=== PATIENT | male | born 1965 | race Caucasian/White ===

== ENCOUNTER 2018-06-30 15:18 | Emergency (ER) | payer OTHER ==
[~2018-06-30] VITALS: Ht 172.7 cm; Wt 63.5 kg
[~2018-06-30 15:18] MED LIST: AMOX500 PO; CEPH500 PO; CYCL10 PO; DIPATR PO; DIPH50 PO; ERYT500 PO; FAMO20 PO; HYDACE5 PO; IBUP600 PO; IBUP800 PO; KETO10 PO; LORA1 PO; NAPR500 PO; OXYACE5T PO; PENVK500 PO; PROM25 PO; SULTRIDS PO; TRAM50 PO
[2018-06-30 15:38] LABS: Source, Urine Clean Catch
[2018-06-30 15:44] LABS: Appearance, Urine Clear (Clear); Blood, Urine 1+ (Neg); Color, Urine Yellow (P-Yellow); Glucose Qualitative, Urine Neg (Neg); Ketones, Urine 2+ (Neg); Leukocyte Esterase, Urine 1+ (Neg); Nitrite, Urine Neg (Neg); Protein, Urine 2+ (Neg); Urobilinogen, Urine 2+ (Normal)
[2018-06-30 15:46] LABS: Bilirubin, Urine 1+ (Neg)
[2018-06-30 16:02] LABS: Bacteria Not Seen /hpf; Red Blood Cells, Urine Not Seen /hpf (0-2); Squamous Epithelial Cells Rare /hpf (Few); White Blood Cells, Urine 0-2 /hpf (0-5)
[2018-06-30 16:11] LABS: BASOPHILS ABSOLUTE AUTO 0.04 K/mm3 (0.00-0.23); BASOPHILS PERCENT AUTO 0 % (0-2); EOSINOPHILS PERCENT AUTO 0 % (0-6); Hemoglobin 18.6 g/dL (13.5-17.5); IMMATURE GRAN ABSOLUTE AUTO 0.08 K/mm3 (0.00-0.10); IMMATURE GRAN PERCENT AUTO 1 % (0-1); LYMPHOCYTES ABSOLUTE AUTO 1.91 K/mm3 (0.84-5.20); LYMPHOCYTES PERCENT AUTO 13 % (21-46); MONOCYTES ABSOLUTE AUTO 0.97 K/mm3 (0.16-1.47); MONOCYTES PERCENT AUTO 7 % (4-13); Mean Corpuscular HGB 31.1 pg (26.0-34.0); Mean Corpuscular HGB Conc 32.6 g/dL (31.5-36.5); Mean Corpuscular Volume 95 fL (80-100); Mean Platelet Volume 10.3 fL (9.1-12.4); NEUTROPHILS ABSOLUTE AUTO 11.65 K/mm3 (1.96-9.15); NEUTROPHILS PERCENT AUTO 80 % (41-73); Platelet Count 320 K/mm3 (150-400); RDW Coefficient Variation 12.4 % (11.7-14.2); RDW Standard Deviation 44.1 fL (35.1-46.3); Red Blood Cell Count 5.99 M/mm3 (4.30-5.90); White Blood Cell Count 14.65 K/mm3 (4.00-11.30)
[2018-06-30 16:15] LABS: Hematocrit 57.1 % (37.0-53.0)
[2018-06-30 16:27] LABS: Alanine Aminotransfer (ALT/SGP 15 U/L (12-78); Albumin, Blood 3.6 g/dL (3.4-5.0); Albumin/Globulin Ratio 0.8 (0.8-1.8); Alk Phos 128 U/L (50-136); Anion Gap 16 mmol/L (6-16); Aspartate Aminotrans (AST/SGOT 22 U/L (12-37); Bilirubin, Total 1.1 mg/dL (0.1-1.0); Blood Urea Nitrogen 23 mg/dL (8-24); Bun/Creatinine Ratio 38.2 (12.0-20.0); CO2, Blood 14 mmol/L (21-32); Calcium, Blood 7.4 mg/dL (8.5-10.1); Chloride, Blood 101 mmol/L (98-108); Globulin, Blood 4.7 g/dL (2.2-4.0); Glomerular Filtration Rate >60 (60-); Glucose, Blood 118 mg/dL (70-99); Potassium, Blood 4.6 mmol/L (3.5-5.5); Sodium, Blood 131 mmol/L (136-145); Total Protein, Blood 8.3 g/dL (6.4-8.2)
[2018-06-30 17:35] LABS: Magnesium, Blood 2.1 mg/dL (1.6-2.4); Phosphorus, Blood 4.2 mg/dL (2.5-4.9)
[2018-06-30 19:45] LABS: Calcium, Ionized (POC) 1.03 mmol/L (1.10-1.46); Chloride (POC) 101 mmol/L (98-108); Glucose (ISTAT POC) 106 mg/dL (70-99); Potassium (POC) 4.3 mmol/L (3.5-5.5); Sodium (POC) 136 mmol/L (135-148); Total CO2 (POC) 24 mmol/L (21-32)
[2018-06-30] MEDS ORDERED: IBUP400 PO (19:49)
[2018-06-30] MEDS ORDERED: Zithromax250 MG PO (19:49)
== END 2018-06-30 20:04 | disposition home or self-care (01) ==
LOC: ER 15:18
PROVIDERS: Emergency Medicine
DX: T51.91XA Toxic effect of unspecified alcohol, accidental (unintentional), initial encounter (principal); J18.1 Lobar pneumonia, unspecified organism; R10.31 Right lower quadrant pain; R10.32 Left lower quadrant pain; F17.210 Nicotine dependence, cigarettes, uncomplicated; Z79.2 Long term (current) use of antibiotics
CPT/HCPCS: 36415; 71046; 80047; 80053; 81001; 83690; 83735; 84100; 85014; 85025; 87086; 96361; 96374; 96375; 99284-25; J0696; J1885; J7030; J7120

== ENCOUNTER → 2020-04-10 | Outpatient (CLI) | payer OTHER ==
[~2020-04-10] MED LIST changes: +IBUP400 PO; +Zithromax250 MG PO
[2020-04-10 18:24] LABS: BASOPHILS ABSOLUTE AUTO 0.04 K/mm3 (0.00-0.23); BASOPHILS PERCENT AUTO 1 % (0-2); EOSINOPHILS ABSOLUTE AUTO 0.11 K/mm3 (0.00-0.68); EOSINOPHILS PERCENT AUTO 2 % (0-6); Hematocrit 46.8 % (37.0-53.0); IMMATURE GRAN ABSOLUTE AUTO 0.01 K/mm3 (0.00-0.10); IMMATURE GRAN PERCENT AUTO 0 % (0-1); LYMPHOCYTES ABSOLUTE AUTO 2.14 K/mm3 (0.84-5.20); LYMPHOCYTES PERCENT AUTO 33 % (21-46); MONOCYTES ABSOLUTE AUTO 0.47 K/mm3 (0.16-1.47); MONOCYTES PERCENT AUTO 7 % (4-13); Mean Corpuscular HGB 30.7 pg (26.0-34.0); Mean Corpuscular HGB Conc 32.1 g/dL (31.5-36.5); Mean Corpuscular Volume 96 fL (80-100); NEUTROPHILS ABSOLUTE AUTO 3.63 K/mm3 (1.96-9.15); NEUTROPHILS PERCENT AUTO 57 % (41-73); Platelet Count 312 K/mm3 (150-400); RDW Coefficient Variation 12.5 % (11.7-14.2); RDW Standard Deviation 44.8 fL (35.1-46.3); Red Blood Cell Count 4.88 M/mm3 (4.30-5.90)
[2020-04-10 18:37] LABS: Alanine Aminotransfer (ALT/SGP 19 U/L (12-78); Albumin, Blood 3.9 g/dL (3.4-5.0); Albumin/Globulin Ratio 1.1 (0.8-1.8); Alk Phos 120 U/L (50-136); Anion Gap 6 mmol/L (6-16); Aspartate Aminotrans (AST/SGOT 26 U/L (12-37); Bilirubin, Total 0.3 mg/dL (0.1-1.0); Blood Urea Nitrogen 14 mg/dL (8-24); Bun/Creatinine Ratio 16.5 (12.0-20.0); CHOL/HDL RATIO 3.5; CO2, Blood 27 mmol/L (21-32); Calcium, Blood 9.1 mg/dL (8.5-10.1); Chloride, Blood 106 mmol/L (98-108); Cholesterol 155 mg/dL (50-200); Creatinine, Blood 0.85 mg/dL (0.60-1.20); Globulin, Blood 3.6 g/dL (2.2-4.0); Glomerular Filtration Rate >60 (60-); Glucose, Blood 98 mg/dL (70-99); HDL Cholesterol 44 mg/dL (>39); LDL/HDL RATIO 2.1; Low Density Lipoprotein Chol 93 mg/dL (0-110); Potassium, Blood 3.9 mmol/L (3.5-5.5); Sodium, Blood 139 mmol/L (136-145); Total Protein, Blood 7.5 g/dL (6.4-8.2); Triglycerides 90 mg/dL (30-160); Very Low Density Lipoprot Chol 18 mg/dL (6-32)
[2020-04-11 08:09] LABS: HIV SCREEN 4TH GENERATION WRFX Non Reactive (Non Reactive)
== END | disposition home or self-care (01) ==
LOC: LAB SHORT 17:23
PROVIDERS: Nurse Practitioner Family
DX: Z11.4 Encounter for screening for human immunodeficiency virus [HIV] (principal); Z13.220 Encounter for screening for lipoid disorders; R03.0 Elevated blood-pressure reading, without diagnosis of hypertension
CPT/HCPCS: 80053; 80061; 84443; 85025; 87389

== ENCOUNTER 2022-08-11 16:45 | Emergency (ER) | payer OTHER ==
[~2022-08-11] VITALS: Ht 172.7 cm; Wt 63.5 kg
[2022-08-11 17:25] VITALS: BP 152/91
[2022-08-11] MEDS ORDERED: Norco 5-325 Ta1 EACH PO (18:54)
== END 2022-08-11 19:00 | disposition home or self-care (01) ==
LOC: ER 16:45
DX: T21.22XA Burn of second degree of abdominal wall, initial encounter (principal); T21.24XA Burn of second degree of lower back, initial encounter; T31.0 Burns involving less than 10% of body surface; F17.210 Nicotine dependence, cigarettes, uncomplicated; X00.0XXA Exposure to flames in uncontrolled fire in building or structure, initial encounter; Y92.099 Unspecified place in other non-institutional residence as the place of occurrence of the external cause
CPT/HCPCS: 99283

== ENCOUNTER 2023-03-14 11:01 | Emergency (ER) | payer OTHER ==
[~2023-03-14] VITALS: Ht 172.7 cm; Wt 63.5 kg
[~2023-03-14 11:01] MED LIST changes: +Norco 5-325 Ta1 EACH PO
[2023-03-14 11:13] VITALS: BP 138/97
[2023-03-14] MEDS ORDERED: IBUP800 PO (12:05)
[2023-03-14] MEDS ORDERED: Robaxin750 MG PO (12:05)
== END 2023-03-14 12:14 | disposition home or self-care (01) ==
LOC: ER 11:01
DX: M54.50 Low back pain, unspecified (principal); G89.29 Other chronic pain; F17.210 Nicotine dependence, cigarettes, uncomplicated
CPT/HCPCS: 96372; 99283-25; J1885

== ENCOUNTER 2023-04-19 14:28 | Observation (INO) | payer OTHER ==
[~2023-04-19] VITALS: Ht 172.7 cm; Wt 61.2 kg
[~2023-04-19 14:28] MED LIST changes: +Robaxin750 MG PO
[2023-04-19 15:40] LABS: BASOPHILS ABSOLUTE AUTO 0.05 K/mm3 (0.00-0.23); BASOPHILS PERCENT AUTO 1 % (0-2); EOSINOPHILS ABSOLUTE AUTO 0.07 K/mm3 (0.00-0.68); EOSINOPHILS PERCENT AUTO 1 % (0-6); Hemoglobin 13.8 g/dL (13.5-17.5); IMMATURE GRAN ABSOLUTE AUTO 0.01 K/mm3 (0.00-0.10); IMMATURE GRAN PERCENT AUTO 0 % (0-1); LYMPHOCYTES ABSOLUTE AUTO 2.08 K/mm3 (0.84-5.20); LYMPHOCYTES PERCENT AUTO 37 % (21-46); MONOCYTES ABSOLUTE AUTO 0.46 K/mm3 (0.16-1.47); MONOCYTES PERCENT AUTO 8 % (4-13); Mean Corpuscular HGB 30.7 pg (26.0-34.0); Mean Corpuscular HGB Conc 33.7 g/dL (31.5-36.5); Mean Corpuscular Volume 91 fL (80-100); NEUTROPHILS ABSOLUTE AUTO 2.94 K/mm3 (1.96-9.15); NEUTROPHILS PERCENT AUTO 52 % (41-73); Platelet Count 288 K/mm3 (150-400); RDW Coefficient Variation 12.9 % (11.7-14.2); RDW Standard Deviation 43.8 fL (35.1-46.3); White Blood Cell Count 5.61 K/mm3 (4.00-11.30)
[2023-04-19 16:00] LABS: Ethanol (Alcohol), Blood, Med <3 mg/dL; Salicylate <1.7 mg/dL (2.8-20.0)
[2023-04-19 16:02] LABS: Alanine Aminotransfer (ALT/SGP 16 U/L (12-78); Albumin, Blood 3.5 g/dL (3.4-5.0); Alk Phos 102 U/L (50-136); Anion Gap 6 mmol/L (6-16); Aspartate Aminotrans (AST/SGOT 17 U/L (12-37); Bilirubin, Total 0.1 mg/dL (0.1-1.0); Blood Urea Nitrogen 16 mg/dL (8-24); Bun/Creatinine Ratio 19.8 (12.0-20.0); CO2, Blood 28 mmol/L (21-32); Calcium, Blood 8.9 mg/dL (8.5-10.1); Chloride, Blood 110 mmol/L (98-108); Creatinine, Blood 0.81 mg/dL (0.60-1.20); Globulin, Blood 3.6 g/dL (2.2-4.0); Glomerular Filtration Rate 102 (60-); Glucose, Blood 116 mg/dL (70-99); Potassium, Blood 3.6 mmol/L (3.5-5.5); Sodium, Blood 144 mmol/L (136-145); Total Protein, Blood 7.1 g/dL (6.4-8.2)
[2023-04-19 16:05] LABS: Acetaminophen, Random <2.0 ug/mL (10.0-30.0)
[2023-04-19 16:16] LABS: Source, Urine Clean Catch
[2023-04-19 16:26] LABS: Bilirubin, Urine Neg (Neg); Blood, Urine Neg (Neg); Glucose Qualitative, Urine Neg (Neg); Ketones, Urine Neg (Neg); Leukocyte Esterase, Urine Neg (Neg); Nitrite, Urine Neg (Neg); Protein, Urine Neg (Neg); Urobilinogen, Urine NORM (Normal)
[2023-04-19 16:29] LABS: Appearance, Urine Clear (Clear); Color, Urine Yellow (P-Yellow)
[2023-04-19 16:41] LABS: U Amphetamine Screen Not Detected; U Barbituate Screen Not Detected; U Benzodiazapine Screen Not Detected; U Buprenorphine Screen Not Detected; U Cannabinoids Screen Not Detected; U Cocaine Screen Not Detected; U Methadone Screen Not Detected; U Methamphetamine Screen Not Detected; U Opiates Screen Not Detected; U Oxycodone Screen Not Detected; U Phencyclidine Screen Not Detected
[2023-04-20 09:58] VITALS: BP 146/83
== END 2023-04-20 11:27 | disposition home or self-care (01) ==
LOC: ER 14:28 → EOR 14:29
PROVIDERS: Physician Assistant; ADMIT Emergency Medicine
DX: F43.21 Adjustment disorder with depressed mood (principal); F10.20 Alcohol dependence, uncomplicated; F17.210 Nicotine dependence, cigarettes, uncomplicated; Y90.9 Presence of alcohol in blood, level not specified
CPT/HCPCS: 80053; 81003; 85025; 99285-25; G0378; G0480

== ENCOUNTER 2023-09-22 08:40 | Emergency (ER) | payer OTHER ==
[~2023-09-22] VITALS: Ht 172.7 cm; Wt 63.5 kg
[2023-09-22 09:20] VITALS: BP 150/94
[2023-09-22] MEDS ORDERED: SULTRIDS PO (09:22)
[2023-09-22] MEDS ORDERED: Benadryl Itch28.3 G1 TOP (09:22)
== END 2023-09-22 09:22 | disposition home or self-care (01) ==
LOC: ER 08:40
DX: S50.861A Insect bite (nonvenomous) of right forearm, initial encounter (principal); L08.9 Local infection of the skin and subcutaneous tissue, unspecified; W57.XXXA Bitten or stung by nonvenomous insect and other nonvenomous arthropods, initial encounter; Z79.899 Other long term (current) drug therapy; F17.210 Nicotine dependence, cigarettes, uncomplicated
CPT/HCPCS: 99281

== ENCOUNTER 2024-01-30 09:41 | Emergency (ER) | payer OTHER ==
[~2024-01-30] VITALS: Ht 172.7 cm; Wt 59.0 kg
[~2024-01-30 09:41] MED LIST changes: +Benadryl Itch28.3 G1 TOP
[2024-01-30 10:24] LABS: BASOPHILS ABSOLUTE AUTO 0.03 K/mm3 (0.00-0.23); BASOPHILS PERCENT AUTO 1 % (0-2); EOSINOPHILS ABSOLUTE AUTO 0.11 K/mm3 (0.00-0.68); EOSINOPHILS PERCENT AUTO 2 % (0-6); Hematocrit 42.8 % (37.0-53.0); Hemoglobin 14.9 g/dL (13.5-17.5); IMMATURE GRAN ABSOLUTE AUTO 0.01 K/mm3 (0.00-0.10); IMMATURE GRAN PERCENT AUTO 0 % (0-1); LYMPHOCYTES PERCENT AUTO 37 % (21-46); MONOCYTES ABSOLUTE AUTO 0.53 K/mm3 (0.16-1.47); MONOCYTES PERCENT AUTO 9 % (4-13); Mean Corpuscular HGB 31.4 pg (26.0-34.0); Mean Corpuscular HGB Conc 34.8 g/dL (31.5-36.5); Mean Corpuscular Volume 90 fL (80-100); Mean Platelet Volume 9.7 fL (9.1-12.4); NEUTROPHILS ABSOLUTE AUTO 3.09 K/mm3 (1.96-9.15); NEUTROPHILS PERCENT AUTO 52 % (41-73); Platelet Count 411 K/mm3 (150-400); RDW Coefficient Variation 12.8 % (11.7-14.2); RDW Standard Deviation 42.2 fL (35.1-46.3); Red Blood Cell Count 4.74 M/mm3 (4.30-5.90); White Blood Cell Count 5.97 K/mm3 (4.00-11.30)
[2024-01-30 10:53] LABS: Albumin/Globulin Ratio 1.1 (0.8-1.8); Bilirubin, Total 0.7 mg/dL (0.1-1.0); Bun/Creatinine Ratio 15.3 (12.0-20.0); Creatinine, Blood 0.98 mg/dL (0.60-1.20); Globulin, Blood 3.7 g/dL (2.2-4.0); Potassium, Blood 3.9 mmol/L (3.5-5.5); Total Protein, Blood 7.7 g/dL (6.4-8.2)
[2024-01-30] MEDS ORDERED: Labetalol HCL 5 MG/ML 4ML Injection (Single Dose) IV ONE (11:45)
[2024-01-30] MEDS ORDERED: HYDROmorphone HCl/Pf 1MG SYR IV ONE (11:45)
[2024-01-30 12:14] LABS: International Normalized Ratio 0.96; Prothrombin Time Results 10.3 Sec (9.7-11.5)
[2024-01-30] MEDS ORDERED: Atropine/Scopalam/Hyoscam/PB 5 ML UDC PO ONE (13:15)
[2024-01-30] MEDS ORDERED: Lidocaine 2% Viscous Soln 15 ML UDC PO ONE (13:15)
[2024-01-30] MEDS ORDERED: Mag Hydrox/AL Hydrox/Simeth 30 ML UDC PO ONE (13:15)
[2024-01-30 14:56] LABS: Source, Urine Clean Catch
[2024-01-30 14:58] LABS: Appearance, Urine Clear (Clear); Bilirubin, Urine Neg (Neg); Blood, Urine Neg (Neg); Color, Urine Yellow (P-Yellow); Glucose Qualitative, Urine Neg (Neg); Ketones, Urine Neg (Neg); Leukocyte Esterase, Urine Neg (Neg); Nitrite, Urine Neg (Neg); Protein, Urine 1+ (Neg); Urobilinogen, Urine NORM (Normal)
[2024-01-30 15:15] VITALS: BP 138/91
[2024-01-30] MEDS ORDERED: NITR.4SL SL (15:21)
[2024-01-30] MEDS ORDERED: NARCAN4 M1 (15:21)
== END 2024-01-30 15:30 | disposition home or self-care (01) ==
LOC: ER 09:41
PROVIDERS: Family Medicine; Physician Assistant
DX: I20.1 Angina pectoris with documented spasm (principal); F17.210 Nicotine dependence, cigarettes, uncomplicated; Z79.899 Other long term (current) drug therapy
CPT/HCPCS: 71046; 71275; 74174; 80053; 83605; 83690; 84484; 85025; 85610; 86850; 86900; 86901; 93005; 93010; 96374-59; 96375-59; 99285-25; A9270; J1171; Q9967

== ENCOUNTER 2024-02-22 11:26 | Emergency (ER) | payer OTHER ==
[~2024-02-22] VITALS: Ht 172.7 cm; Wt 63.5 kg
[~2024-02-22 11:26] MED LIST changes: +NARCAN4 M1; +NITR.4SL SL
[2024-02-22 11:30] VITALS: BP 139/91
[2024-02-22 12:06] LABS: BASOPHILS ABSOLUTE AUTO 0.04 K/mm3 (0.00-0.23); BASOPHILS PERCENT AUTO 1 % (0-2); EOSINOPHILS ABSOLUTE AUTO 0.23 K/mm3 (0.00-0.68); EOSINOPHILS PERCENT AUTO 4 % (0-6); Hematocrit 42.3 % (37.0-53.0); Hemoglobin 14.4 g/dL (13.5-17.5); IMMATURE GRAN ABSOLUTE AUTO 0.01 K/mm3 (0.00-0.10); IMMATURE GRAN PERCENT AUTO 0 % (0-1); LYMPHOCYTES ABSOLUTE AUTO 2.31 K/mm3 (0.84-5.20); LYMPHOCYTES PERCENT AUTO 38 % (21-46); MONOCYTES PERCENT AUTO 8 % (4-13); Mean Corpuscular HGB 31.5 pg (26.0-34.0); Mean Corpuscular Volume 93 fL (80-100); Mean Platelet Volume 10.7 fL (9.1-12.4); NEUTROPHILS ABSOLUTE AUTO 2.97 K/mm3 (1.96-9.15); NEUTROPHILS PERCENT AUTO 49 % (41-73); Platelet Count 286 K/mm3 (150-400); RDW Coefficient Variation 13.2 % (11.7-14.2); RDW Standard Deviation 44.4 fL (35.1-46.3); Red Blood Cell Count 4.57 M/mm3 (4.30-5.90); White Blood Cell Count 6.06 K/mm3 (4.00-11.30)
[2024-02-22 12:21] LABS: Influenza A, PCR NEGATIVE (NEGATIVE); Influenza B, PCR NEGATIVE (NEGATIVE); Resp Syncytial Virus, PCR NEGATIVE (NEGATIVE); SARS-Cov-2 (COVID-19) PCR, MMC NEGATIVE (NEGATIVE)
[2024-02-22 12:31] LABS: Albumin, Blood 3.5 g/dL (3.4-5.0); Bilirubin, Total 0.3 mg/dL (0.1-1.0); Bun/Creatinine Ratio 23.9 (12.0-20.0); Calcium, Blood 8.6 mg/dL (8.5-10.1); Creatinine, Blood 0.88 mg/dL (0.60-1.20); Globulin, Blood 3.5 g/dL (2.2-4.0); Potassium, Blood 3.7 mmol/L (3.5-5.5)
[2024-02-22] MEDS ORDERED: ONDA4ODT MM (14:25)
== END 2024-02-22 14:28 | disposition home or self-care (01) ==
LOC: ER 11:26
PROVIDERS: Physician Assistant
DX: R11.2 Nausea with vomiting, unspecified (principal); F17.210 Nicotine dependence, cigarettes, uncomplicated; Z79.899 Other long term (current) drug therapy
CPT/HCPCS: 0241U; 80053; 85025; 99284